=== PATIENT | female | born 1955 | race African-American/Black ===

== ENCOUNTER 2024-07-24 08:59 | Emergency (ER) | payer MEDICARE ==
[2024-07-24] VITALS (10 sets, daily range): BP systolic 102–126; BP diastolic 63–72
[~2024-07-24] VITALS: Ht 167.6 cm; Wt 87.0 kg
[~2024-07-24 08:59] MED LIST: ALEVE220 M1 OR; BAYER BACK OR; CIPRO500 MG PO; CYCLOBENZAPR10 MG PO; EFFEXOR37.5 MG PO; EQ IBUPROFEN200 MG PO; ESTRACE1 MG OR; ESTRADIOL0.5 MG PO; FENOFIBRATE54 MG PO; FLAGYL500 MG PO; FLEXERIL10 MG PO; LOPID600 MG PO; LORTAB 10 PO; MAXZIDE OR; MAXZIDE PO; MIRALAX3350 NF PO; MOTRIN800 MG PO; NYSTATIN100000 M2 EX; PAROXETINE20 MG PO; ZYLOPRIM100 MG PO; [UNRECOGNIZED DRUG - OTHER] OR
[2024-07-24] MEDS ORDERED: diazePAM 10 MG/2 ML VIAL IV ONE (09:20)
[2024-07-24] MEDS ORDERED: traMADol HCL 50 MG/TAB PO ONE (09:20)
[2024-07-24] MEDS ORDERED: CYCLOBENZAPRINE10 MG PO (11:52)
[2024-07-24] MEDS ORDERED: TRAMADOL HYDROC50 M1 PO (11:52)
== END 2024-07-24 12:34 | disposition home or self-care (01) ==
LOC: ED 08:59
DX: M25.562 Pain in left knee (principal); M23.92 Unspecified internal derangement of left knee; I10 Essential (primary) hypertension
CPT/HCPCS: J3360